=== PATIENT | male | born 1975 | race African-American/Black ===

== ENCOUNTER 2016-11-14 06:27 | Emergency (ER) | payer MEDICARE, MEDICAID ==
[2016-11-14 07:00] LABS: BASOPHILS 1.8 % (0-2); HEMATOCRIT 40.9 % (42.0-54.0); HEMOGLOBIN 14.4 g/dL (13.5-17.5); IMMATURE GRANULOCYTES 0.2 % (0-5); LYMPHOCYTES 48.9 % (15-50); MCH 32.5 pg (26.0-34.0); MCHC 35.2 g/dL (31.0-37.0); MCV 92.3 fL (80.0-100.0); MEAN PLATELET VOLUME 11.2 fL (7.4-10.4); NEUTROPHILS 31.1 % (40-80); PLATELET COUNT 237 10x3/uL (130-400); RBC 4.43 10x6/uL (4.20-6.10); RDW 14.5 % (11.5-14.5); WBC 4.9 10x3/uL (4.8-10.8)
[2016-11-14 07:32] LABS: ALBUMIN 3.6 g/dL (3.4-5.0); ALKALINE PHOSPHATASE 100 U/L (46-116); ALT (SGPT) 20 U/L (10-68); CALC OSMOLALITY 284 mosm/kg (275-300); CALCIUM 8.6 mg/dL (8.5-10.1); CARBON DIOXIDE 26.7 mmol/L (21.0-32.0); CHLORIDE - SERUM 107 mmol/L (98-107); CREATININE - SERUM 1.1 mg/dL (0.6-1.3); GLUCOSE 78 mg/dL (74-106); POTASSIUM - SERUM 3.7 mmol/L (3.5-5.1); PROTEIN - SERUM 7.7 g/dL (6.4-8.2); SODIUM 143 mmol/L (136-145); UREA NITROGEN 14 mg/dL (7-18); eGFR NON AFRICAN AMERICAN 78 mL/min (90-120)
[2016-11-14 07:43] LABS: CHOL - HDL RATIO 2.6 ratio (2.3-4.9); CHOLESTEROL, TOTAL 169 mg/dL (0-200); CKMB 1.2 U/L (0.0-3.6); CREATINE KINASE 265 UL (21-232); HDL CHOLESTEROL 64 mg/dL (32-96); LDL CHOLESTEROL 72 mg/dL (0-100); LDL-HDL RATIO 1.1 ratio (1.5-3.5); TRIGLYCERIDE 169 mg/dL (30-200); TROPONIN-I < 0.017 ng/mL (0.000-0.060)
== END 2016-11-14 11:10 | disposition home or self-care (01) ==
LOC: D.ER 06:27
PROVIDERS: Family Medicine
DX: R07.9 Chest pain, unspecified (principal); G83.89 Other specified paralytic syndromes; I10 Essential (primary) hypertension; F17.200 Nicotine dependence, unspecified, uncomplicated

== ENCOUNTER 2016-11-21 19:01 | Emergency (ER) | payer MEDICARE, MEDICAID ==
[2016-11-21 20:12] LABS: APPEARANCE CLEAR (CLEAR); BILIRUBIN NEGATIVE (NEGATIVE); COLOR YELLOW (YELLOW); GLUCOSE NEGATIVE (NEGATIVE); KETONE NEGATIVE (NEGATIVE); LEUKOCYTE ESTERASE NEGATIVE (NEGATIVE); NITRITE NEGATIVE (NEGATIVE); PROTEIN NEGATIVE (NEGATIVE); SPECIFIC GRAVITY 1.015 (1.005-1.020); UROBILINOGEN NORMAL (NORMAL)
== END 2016-11-21 21:41 | disposition home or self-care (01) ==
LOC: D.ER 19:01
PROVIDERS: Emergency Medicine
DX: I10 Essential (primary) hypertension (principal); S69.91XA Unspecified injury of right wrist, hand and finger(s), initial encounter; X58.XXXA Exposure to other specified factors, initial encounter; Y93.89 Activity, other specified; Y92.89 Other specified places as the place of occurrence of the external cause; F17.200 Nicotine dependence, unspecified, uncomplicated